=== PATIENT | female | born 1985 | race Caucasian/White ===

== ENCOUNTER → 2016-11-29 | Outpatient (CLI) | payer OTHER | LOC: FIMAGING 12:19 | PROVIDERS: ATTEND Pediatrics | DX: E03.9 Hypothyroidism, unspecified (principal); E04.1 Nontoxic single thyroid nodule ==

== ENCOUNTER → 2018-02-27 | Outpatient (CLI) | payer OTHER | LOC: FIMAGING 08:49 | PROVIDERS: ATTEND Nurse Practitioner Family | DX: E04.1 Nontoxic single thyroid nodule (principal) ==